=== PATIENT | female | born 1950 | race Caucasian/White ===

== ENCOUNTER 2020-12-22 10:45 | Outpatient (CLI) | payer MEDICARE, OTHER, SELFPAY ==
--- NOTE | 2020-12-22 11:09 | MR_ITS ---
WS: [id number] MRI HEAD WITH CONTRAST TECHNIQUE: Sagittal T1, T2 axial, T2 axial FLAIR, axial susceptibility weighted imaging, axial diffus ion weighted images, and coronal T2 images were obtained. Pre and post-T1 axial and post T1 coronal i mages. ADC and FSPGR images. CLINICAL INFORMATION: LEFT SIDE WEAKNESS,TREMOR COMPARISON: None. FINDINGS: No evidence of restricted diffusion to suggest acute ischemia. Ventricular system and basal cisterns are patent. Mild small vessel changes. Moderate parenchymal volume loss. Normal posterior fossa. Norm al vascular flow voids at the skull base. No extra-axial fluid collections. No evidence of mass or ma ss effect. Inspissated secretions right frontal sinus. Paranasal sinuses are otherwise well aerated. Mastoid air cells are well aerated. No hemosiderin on susceptibly weighted images. Moderate symmetric atrophy temporal lobes and hippocam pal formations. Normal optic chiasm and pituitary infundibulum. Normal cavernous sinuses and Meckel's cave. Incidental venous angioma right frontal lobe. Otherwise no abnormal gadolinium enhancement. Normal du ral venous sinuses. MR/MR head wo/w con [id number] IMPRESSION: 1. No evidence of restricted diffusion to suggest acute ischemia. 2. Mild small vessel changes. Moderate parenchymal volume loss. 3. No hemosiderin on susceptibly weighted images. 4. Incidental venous angioma right frontal lobe. Otherwise no abnormal gadolin ium enhancement. 5. Inspissated secretions in the right frontal sinus. Paranasal sinuses and ma stoid air cells are otherwise well aerated. 6. Moderate symmetric atrophy temporal lobes and hippocampal formations.
[2020-12-22 11:52] LABS: Glomerular Filtration Rate 82.7 mL/min (90-130)
[2020-12-22] MEDS: gadobenate dimeglumine 20 mL vial IV (12:01)
== END 2020-12-22 10:46 | disposition home or self-care (01) ==
LOC: RADWPI 10:48
PROVIDERS: PCP Physician Assistant Medical; Visit Provider Physician Assistant Medical
DX: R53.1 Weakness (principal); R25.1 Tremor, unspecified; M21.372 Foot drop, left foot; R51.9 Headache, unspecified; G31.9 Degenerative disease of nervous system, unspecified; Q28.3 Other malformations of cerebral vessels
CPT/HCPCS: 70553; 82565; A9577

== ENCOUNTER 2023-06-01 13:05 | Outpatient (RCR) | payer MEDICARE, OTHER, SELFPAY | END 2023-06-09 23:59 | disposition home or self-care (01) | LOC: SPT 13:05 | PROVIDERS: PCP Registered Nurse; Visit Provider Nurse Practitioner Family | DX: I89.0 Lymphedema, not elsewhere classified (principal) | CPT/HCPCS: 97140; 97162 ==

== ENCOUNTER 2023-06-10 06:00 | Outpatient (RCR) | payer MEDICARE, OTHER, SELFPAY | END 2023-07-09 23:59 | disposition home or self-care (01) | LOC: SPT 06:00 | PROVIDERS: PCP Registered Nurse; Visit Provider Nurse Practitioner Family | DX: I89.0 Lymphedema, not elsewhere classified (principal) | CPT/HCPCS: 97140 ==

== ENCOUNTER 2023-06-16 12:48 | Outpatient (CLI) | payer MEDICARE, OTHER, SELFPAY ==
--- NOTE | 2023-06-16 12:57 | US_ITS ---
WS: [id number] ULTRASOUND BREAST LEFT TECHNIQUE: Ultrasound left breast focused area of concern. CLINICAL INFORMATION: LT CHEST WALL COMPARISON: None. FINDINGS: Prior postoperative changes LEFT mastectomy. Hypoechoic slightly irregular focus along the scar site measuring 4.3 x 5.2 mm is nonspecific but probably benign and may be postoperative scarring or edema. Recommend 6-month follow-up to confirm stability. Adjacent incidental simple cyst measuring 3 mm IMPRESSION: BI-RADS 3 probably benign Recommend 6-month follow-up ultrasound
== END 2023-06-16 12:49 | disposition home or self-care (01) ==
PROVIDERS: PCP Registered Nurse; Visit Provider Nurse Practitioner Family
DX: R22.2 Localized swelling, mass and lump, trunk (principal); R22.32 Localized swelling, mass and lump, left upper limb; C50.412 Malignant neoplasm of upper-outer quadrant of left female breast; Z17.0 Estrogen receptor positive status [ER+]; Z90.12 Acquired absence of left breast and nipple
CPT/HCPCS: 76882

== ENCOUNTER 2023-07-10 06:00 | Outpatient (RCR) | payer MEDICARE, OTHER, SELFPAY | END 2023-08-09 23:59 | disposition home or self-care (01) | LOC: SPT 06:00 | PROVIDERS: PCP Registered Nurse; Visit Provider Nurse Practitioner Family | DX: I89.0 Lymphedema, not elsewhere classified (principal) | CPT/HCPCS: 97140 ==

== ENCOUNTER 2023-12-15 12:44 | Outpatient (CLI) | payer MEDICARE, OTHER, SELFPAY ==
--- NOTE | 2023-12-15 12:53 | US_ITS ---
WS: [id number] ULTRASOUND BREAST LEFT TECHNIQUE: Ultrasound left breast focused area of concern. CLINICAL INFORMATION: ABNORMAL US LEFT CHEST/HX OF BREAST CA COMPARISON: 06/16/2023 FINDINGS: Ultrasound performed at the scar site LEFT chest wall Prior postoperative changes LEFT mastectomy. Previous described hypoechoic area at the scar site is n o longer visualized today. No suspicious cystic or solid lesions today. Findings are benign. Recommen d return to annual diagnostic mammography. IMPRESSION: Recommend return to annual diagnostic mammography. BI-RADS 2 benign Return to annual diagnostic mammography.
== END 2023-12-15 12:45 | disposition home or self-care (01) ==
LOC: RAD 12:47
PROVIDERS: PCP Registered Nurse; Visit Provider Nurse Practitioner Family
DX: R93.89 Abnormal findings on diagnostic imaging of other specified body structures (principal); Z85.3 Personal history of malignant neoplasm of breast; Z90.12 Acquired absence of left breast and nipple
CPT/HCPCS: 76882